=== PATIENT | female | born 1980 | race Caucasian/White ===

== ENCOUNTER 2022-04-03 23:14 | Emergency (ER) | payer SELFPAY ==
[~2022-04-03] VITALS: Ht 157.5 cm; Wt 90.9 kg
[2022-04-03 23:19] VITALS: BP 126/87; TEMP 98.4
[2022-04-04 00:47] VITALS: PULSE 78
== END 2022-04-04 00:47 | disposition home or self-care (01) ==
LOC: COL.ER 23:14
DX: J06.9 Acute upper respiratory infection, unspecified (principal); Z87.891 Personal history of nicotine dependence; Z20.822 Contact with and (suspected) exposure to COVID-19; Z28.311 Partially vaccinated for COVID-19